=== PATIENT | male | born 2000 | race Two or more races ===

== ENCOUNTER 2019-05-07 07:09 | Inpatient (IN) | payer SELFPAY ==
[~2019-05-07] VITALS: Ht 180.3 cm; Wt 69.1 kg
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
[2019-05-07] MEDS ORDERED: ACETAMINOPHEN 325 MG TABLET PO ONE (08:00)
[2019-05-07] MEDS ORDERED: ACETAMINOPHEN 325 MG TABLET ONE (08:01)
--- NOTE | 2019-05-07 08:04 | NUR ---
Medicated as per emar for 10/[address] head/maxillofacial pending.
--- NOTE | 2019-05-07 08:30 | NUR ---
Pt back from CT
--- NOTE | 2019-05-07 08:45 | NUR ---
Pt sleeping, remains on continuous pulse oximetry.
--- NOTE | 2019-05-07 09:48 | NUR ---
Call out to ENT by ER . Pt remains asleep on continuous pulse ox monitoring.
[2019-05-07 10:43] VITALS: BP 106/65
--- NOTE | 2019-05-07 10:53 | NUR ---
Report given to Kianna HERNANDEZ. EKG to be done then pt will be transported upstairs.
[2019-05-07] MEDS ORDERED: CHLORDIAZEPOXIDE 10 MG CAPSULE PO PRN (11:00)
[2019-05-07] MEDS ORDERED: CHLORDIAZEPOXIDE 25 MG CAPSULE PO PRN ×3 (11:00)
[2019-05-07 11:03] LABS: BASOPHILS # (AUTO) 0.05 x10^3/uL (0-0.3); BASOPHILS % (AUTO) 0 % (0-1); EOSINOPHILS # (AUTO) 0.02 x10^3/uL (0-0.8); EOSINOPHILS % (AUTO) 0 % (1-7); LYMPHOCYTES # (AUTO) 1.74 x10^3/uL (1-6.1); LYMPHOCYTES % (AUTO) 16 % (22-44); MD NO; MEAN CORPUSCULAR HEMOGLOBIN 31.7 pg (27.5-34.5); MEAN CORPUSCULAR HGB CONC 33.2 g/dL (33.2-36.2); MEAN CORPUSCULAR VOLUME 95.4 fL (81-97); MEAN PLATELET VOLUME 8.3 fL (7.4-10.4); MONOCYTES # (AUTO) 0.91 x10^3/uL (0-1.4); MONOCYTES % (AUTO) 8 % (2-9); NEUTROPHILS # (AUTO) 8.49 x10^3/uL (1.8-8.0); NEUTROPHILS % (AUTO) 76 % (42-75); PLATELET COUNT 239 x10^3/uL (130-400); RED BLOOD COUNT 4.32 x10^6/uL (4.38-5.82); RED CELL DISTRIBUTION WIDTH 14.1 % (9.4-14.8)
[2019-05-07 11:10] LABS: INTERNATIONAL NORMALIZED RATIO 1.01 (0.93-1.1); PROTHROMBIN TIME 10.7 Seconds (9.6-11.5)
[2019-05-07 11:13] LABS: ANION GAP 6 mmol/L (5-15); CALCIUM 8.7 mg/dL (8.5-10.1); CHLORIDE 107 mmol/L (98-107); CREATININE 0.99 mg/dL (0.7-1.3)
[2019-05-08] MEDS ORDERED: FOLIC ACID 1 MG TABLET PO SCH (09:00)
[2019-05-08] MEDS ORDERED: MULTIVITAMINS/MINERALS TABLET PO SCH (09:00)
[2019-05-08] MEDS ORDERED: THIAMINE 100MG TABLET PO SCH (09:00)
[2019-05-09] MEDS ORDERED: THIAMINE 100 MG in DEXTROSE 5% 50 ML IVPB SCH (11:32)
== END 2019-05-07 14:28 | disposition left against medical advice (07) | DRG 159 ==
LOC: ED 10:18 → EDIP 10:19 → ED 10:53 → 4NE 11:24
PROVIDERS: ADMIT Internal Medicine Infectious Disease; ATTEND Internal Medicine Infectious Disease
DX: S02.642A Fracture of ramus of left mandible, initial encounter for closed fracture (principal); F10.129 Alcohol abuse with intoxication, unspecified; Z53.29 Procedure and treatment not carried out because of patient's decision for other reasons; X58.XXXA Exposure to other specified factors, initial encounter; Y93.89 Activity, other specified; Y92.89 Other specified places as the place of occurrence of the external cause; Y99.8 Other external cause status
CPT/HCPCS: 36415; 70450; 70486; 80048; 80307; 85025; 85610; 93005; 99285; G0378